=== PATIENT | female | born 1970 | race African-American/Black ===

== ENCOUNTER 2017-02-05 00:18 | Inpatient (IN) ==
[2017-02-05] MEDS ORDERED: SOLU-MEDROL IV ONE (00:45)
[2017-02-05] MEDS ORDERED: PEPCID IV ONE (00:46)
[2017-02-05] MEDS ORDERED: SODIUM CHLORIDE 0.9% INJ ONE (00:46)
[2017-02-05] MEDS ORDERED: BENADRYL IV ONE (00:46)
--- NOTE | 2017-02-05 00:53 | PROVIDER DOCUMENTATION ---
HPI-General Adult - General Chief Complaint: Edema Stated Complaint: FACIAL SWELLING Time Seen by Provider: 02/05/17 00:42 Source: patient Allergies/Adverse Reactions: Patient Allergies Allergy/AdvReac Type Severity Reaction Status Date / Time No Known Allergies Allergy Verified 02/05/17 00:30 Home Medications: Home Medication List Medication Instructions Recorded Confirmed Last Taken Type Lisinopril/Hydrochlorothiazide 1 each PO DAILY #30 tablet 01/29/16 02/05/1705/16 Rx [Lisinopril-Hctz 20-25 mg Tab] Fluoxetine HCl [Prozac] 40 mg PO DAILY 12/02/16 02/05/17 02/04/17 History Haloperidol 0.5 mg PO BID 12/02/16 02/05/17 02/04/17 History Labetalol HCl 200 mg PO BID 12/02/16 02/05/17 02/04/17 History Nifedipine E.r. [Procardia ER] 60 mg PO DAILY 12/02/16 02/05/17 02/04/17 History Potassium Chloride 20 meq PO BID #20 tab.er.prt 01/30/17 02/05/17 02/04/17 Rx Calcium Carb, Citrate/Vit D3 1 each PO DAILY 02/05/17 02/05/17 02/04/17 History [Calcium + D3 ER Tablet] - History of Present Illness -Gen Adult Nature of Presenting Problems: Pt come in with lip and tongue swelling and states that she felt as if her throat was closing up. She is managing her secretions but is visibly swollen in her upper lip and face. States that she hasn't done anything out of the ordinary or ate new foods. No new medications. Review of Systems - Adult - REVIEW OF SYSTEMS - ADULT Constitutional: reports: no symptoms reported. denies: chills, fever, fatique, night sweats, weight gain, weight loss Eyes: reports: no symptoms reported. denies: discharge, dry eyes, decreased vision, blurred vision, double vision, eye pain, redness Ears, Nose, Mouth & Throat: reports: see HPI, mouth swelling, throat swelling. denies: ear discharge, ear pain, tinnitus, sinus problem, nose pain, mouth/ dental pain, hoarseness, throat pain Cardiovascular: reports: no symptoms reported. denies: chest pain, edema, heart murmur, irregular heart rate, palpitations, poor circulation, PND, syncope Respiratory: reports: no symptoms reported. denies: chronic cough, cough, dyspnea on exertion, excessive sputum production, hemoptysis, shortness of breath, wheezing Gastrointestinal: reports: no symptoms reported. denies: abdominal pain, hematemesis, constipation, diarrhea, difficulty swallowing, nausea, poor appetite, rectal bleeding, vomiting Genitourinary: reports: no symptoms reported. denies: dysuria, discharge, flank pain, frequent UTI's, hematuria, hesitency, urinary retention, urgency Musculoskeletal: reports: no symptoms reported. denies: bone pain, back pain, frequent leg cramps, joint pain, joint swelling, muscle aches, muscle weakness, neck pain Integumentary: reports: no symptoms reported. denies: hives, itching, nail changes, rash, skin sores/ulcer, skin thickening Neurological: reports: no symptoms reported. denies: ataxia, dizziness/vertigo , headache/migraines, numbness, paresthesia, slurred speech, syncope, tremors Psychiatric: reports: no symptoms reported. denies: anxiety, alcohol/drug dependence, depression, emotional problems, panic attacks, suicidal thoughts Endocrine: reports: no symptoms reported. denies: change in skin pigment, excessive sweating, goiter, cold intolerance, heat intolerance, increased thirst , polyuria Hematologic/Lymphatic: reports: no symptoms reported. denies: blood clots, easy bruising, low blood count, lymphedema, swollen lymph nodes, transfusions Allergic/Immunologic: reports: no symptoms reported. denies: allergic reactions , allergic rhinitis, asthma, frequent infections, hay fever, hives, positive PPD , other All Other Systems: Reviewed and Negative Past History - Adult - PAST MEDICAL HISTORY-ADULT Review of Records: reports: Old Records Reviewed, Nursing Assessment Review, Medications Reviewed, Social history reviewed & non-contributory. Major Childhood Illnesses: reports: denies history Cardiovascular: reports: HTN (non compliance), hyperlipidemia Respiratory: reports: denies history Gastrointestinal: reports: denies history Obstetrical/Gynecological: reports: denies history Genitourinary: reports: denies history Musculoskeletal: reports: denies history Neurological: reports: denies history Psychiatric: reports: anxiety, depression Endocrine/Immune: reports: anemia, hypoglycemia Other Conditions: reports: denies history - PRIOR SURGERIES/PROCEDURES Surgical/Procedure History: reports: BTL, other (breast reduction) - IMMUNIZATION STATUS Childhood Immunizations: UTD Flu Vaccine: See Nurse Assessment - FAMILY HISTORY Family History: reviewed, not pertinent - SOCIAL HISTORY Smoking: cigarettes, less than 1 pack/day Provider spent 3-5 mins advising pt. on dangers of tobacco.: Discussed manners to quit use, and f/u contacts for add'l counseling. Substance Use: none/never Alcohol Use Frequency: never Living Situation: family Physical Exam-General - PHYSICAL EXAM-ADULT Initial Vital Signs Reviewed: Yes - CONSTITUTIONAL General Appearance: alert, no apparent distress - EYES Eyes: PERRL/EOMI, pink conjunctivae - HEAD, EARS, NOSE, MOUTH & THROAT HENMT: normocephalic/atraumatic, moist mucous membranes, TMs normal, angioedema , other (edema to lips and tongue) - NECK Neck: non-tender, full range of motion, supple, normal inspection - RESPIRATORY Respiratory: chest non-tender, lungs clear, normal breath sounds, no pleuratic chest pain, no respiratory distress, no accessory muscle use - CARDIOVASCULAR Cardiovascular: normal peripheral pulses, regular rate, rhythm, no edema, no gallop, no JVD, no murmur - GASTROINTESTINAL (ABDOMEN) Abdominal Exam: normal bowel sounds, non tender, soft, no organomegaly, no pulsatile mass - LYMPHATIC Lymphatic: no adenopathy - MUSCULOSKELETAL Back Exam: normal inspection, no CVA tenderness, no vertebral tenderness Extremity: normal range of motion, non-tender, normal gait, normal inspection, no pedal edema, no calf tenderness, normal capillary refill, pelvis stable - SKIN Integumentary: normal color, normal turgor, warm/dry - NEUROLOGIC Neurologic: consulting intern II-XII nml as tested, no motor/sensory deficits - PSYCHIATRIC Psych/Mental Status: normal mood/affect, normal thought content, normal thought process, oriented x 3 Progress - PLAN OF CARE/RESULTS Progress/Plan/Lab Results: Vital Signs - 8 hr 02/05/17 00:22 Temperature 98.0 F Pulse Rate 97 H Respiratory Rate 17 Blood Pressure 140/89 O2 Sat by Pulse Oximetry 100 Orders Category Date Time Status IV Insertion ORDERED Care 02/05/17 00:45 Ordered CBC WITH DIFF [HEME] Stat Lab 02/05/17 00:48 Ordered CMP [COMPREHENSIVE METABOLIC PANEL] [CHEM] Stat Lab 02/05/17 00:48 Uncollected Diphenhydramine [Benadryl] Med 02/05/17 00:46 Once 50 mg IV NOW ONE Famotidine [Pepcid] Med 02/05/17 00:46 Once 20 mg IV NOW ONE Methylprednisolone Sod Succ [Solu-Medrol] Med 02/05/17 00:45 Once 125 mg IV NOW ONE Sodium Chloride 0.9% Med 02/05/17 00:46 Once 5 - 10 ml INJ NOW ONE Result Diagrams: 02/05/17 01:13 - CONSULTS/PCP/HOSPITALIST Notification #1 *Consult/PCP/Hospitalist*: penot Time Discussed: 01:22 Consult Disposition: Will see in ED, Admit Departure - Departure Time of Disposition Decision: 01:21 DIAGNOSIS: Angio-edema Qualifiers: Encounter type: initial encounter Qualified Code(s): T78.3XXA - Angioneurotic edema, initial encounter Disposition: ADMITTED INPATIENT 09 Certified Medical Emergency: Emergent Condition: Good Additional Freetext Instructions: ED Follow Up Instructions: You have been treated by a care provider in the Emergency Department. These instructions are being provided to you so you can have an understanding of how to care for yourself upon discharge. Upon discharge from the Emergency Department, you are responsible for making arrangements for follow-up care by a physician of your choice. Take all prescribed medications as directed. Return to the Emergency Department immediately for any new or worsening symptoms. You may call the Physician Referral phone number at [phone] to obtain a list of Physicians who are taking new patients. Referrals and Follow-Ups: Isaac Fall [Primary Care Provider] -
[2017-02-05 01:19] LABS: MANUAL DIFF NEEDED? NO
[2017-02-05 01:20] LABS: BASO% 0.3 % (0.0-0.8); EOS# 0.11 X1000 (0.0-0.7); EOS% 1.6 % (0.0-10.0); HEMATOCRIT 35.3 % (37.0-47.0); HEMOGLOBIN 11.4 g/dL (12.0-16.0); LYMPH# 2.93 X1000 (1.2-3.4); LYMPH% 42.3 % (20.5-51.1); MCH 25.9 PG (27-31); MCHC 32.3 g/dL (33-37); MCV 80.2 FL (81-99); MONO# 0.61 X1000 (0.11-0.59); MONO% 8.8 % (1.7-9.3); MPV 8.7 FL (7.4-10.4); PLT 265 X1000 (130-400)
[2017-02-05] MEDS ORDERED: ZOFRAN IV PRN (01:38)
[2017-02-05] MEDS ORDERED: TYLENOL PO PRN (01:38)
[2017-02-05] MEDS ORDERED: NS 1,000 ML IV ONE (01:38)
[2017-02-05] MEDS: SOLU-MEDROL IV SCH ×3 (01:42→16:47)
[2017-02-05] MEDS: BENADRYL IV SCH ×3 (01:43→16:54)
[2017-02-05] MEDS: PEPCID IV SCH ×2 (01:43→08:49)
[2017-02-05 01:45] LABS: AGAP 11; ALBUMIN 3.9 g/dL (3.5-5.0); ALKALINE PHOSPHATASE 67 U/L (32-104); BUN 16 mg/dL (8-22); CALCIUM 9.1 mg/dL (8.8-10.2); CHLORIDE 101 mmol/L (98-107); COSMO 278; GOT 16 U/L (10-30); GPT 8 U/L (10-36); POTASSIUM 3.4 mmol/L (3.5-5.1); SODIUM 139 mmol/L (136-145); TCO2 27 mmol/L (25-35); TOTAL BILIRUBIN 0.15 mg/dL (0.20-1.00); TOTAL PROTEIN 7.4 g/dL (6.3-8.3)
[2017-02-05] MEDS ORDERED: SODIUM CHLORIDE 0.9% INJ SCH (01:45)
--- NOTE | 2017-02-05 04:21 | HISTORY AND PHYSICAL ---
CHIEF COMPLAINT: Swelling of face and lips. HISTORY OF PRESENT ILLNESS: This is a 46-year-old female with history of hypertension. Comes from home with swelling of the face starting last evening. She felt like her lip and tongue were swelling and that her throat was closing up. She is able to swallow, breathe comfortably, but she has obvious swelling of her upper lip, tongue and difficulty speaking. No new medications but she does take lisinopril. She says she has been on that for several months is what she is saying and it may be longer than that. Patient admitted for acute angioedema presumably related to YVAN inhibitor. PAST MEDICAL HISTORY: 1. Hypertension, denies diabetes. 2. Dyslipidemia. PAST SURGICAL HISTORY: She has had breast reduction and bilateral tubal ligation. SOCIAL HISTORY: She smokes less than half a pack a day. Denies alcohol. Denies recreational drug use. FAMILY HISTORY: Reviewed and noncontributory. ALLERGIES: No known drug allergies although now will be allergic to YVAN inhibitors and ARBs. MEDICATIONS: She is on calcium, Prozac 40, haloperidol 0.5 b.i.d., labetalol 200 b.i.d., lisinopril/hydrochlorothiazide which interestingly according to this she just started 8 days ago at least the prescription was given through the ER, Procardia 60 daily potassium 20 b.i.d. REVIEW OF SYSTEMS: Otherwise negative times a 10 point review of systems. PHYSICAL EXAMINATION: VITAL SIGNS: Blood pressure was 142/80, heart rate of 73, respiratory rate 14, temperature 97.8 degrees, 100% on room air. CARDIOVASCULAR: Regular rate and rhythm. PULMONARY: Bilateral breath sounds. Clear to auscultation. GASTROINTESTINAL: Soft, nontender, nondistended. Bowel sounds are positive. EXTREMITIES: No clubbing or cyanosis. LYMPHATICS: No peripheral edema. NEUROLOGICAL: Nonfocal. HEENT: She had facial edema on HEENT mostly in her upper lip, very painful, tender. She could not really move it very well. It was very difficult to analyze her oropharynx. Tongue was swollen and difficult to visualize the back of her oropharynx. LABORATORY DATA: Unremarkable. Potassium 3.4 really was the only abnormal finding. ASSESSMENT: A 46-year-old female with hypertension who has angioedema likely angiotensin- converting enzyme inhibitor related. 1. Angioedema. Obviously stop YVAN inhibitors and continue steroids, Pepcid and Benadryl, and follow clinically. We will continue to monitor very closely. 2. Hypertension. We will continue regular medications. 3. Anxiety disorder. We will continue her regular medicines and follow closely. cc: MD Isaac Ma
[2017-02-05] MEDS: TRANDATE PO SCH ×2 (08:49→20:18)
[2017-02-05] MEDS: HALDOL PO SCH ×2 (08:49→20:18)
[2017-02-05] MEDS: KLOR-CON PO SCH ×2 (08:50→20:19)
[2017-02-05] MEDS: ADALAT CC PO SCH (08:50)
[2017-02-05] MEDS: PROZAC PO SCH (08:50)
[2017-02-05] MEDS: CALTRATE 600 + D PO SCH (08:50)
[2017-02-05 10:11] LABS: IRON SATURATION 9 %; TIBC 349 ug/dL; TOTAL IRON 31 ug/dL (49-151); UNBOUND IRON 318 ug/dL (112-346)
[2017-02-05 11:18] LABS: FERRITIN 29 ng/mL (13-150)
--- NOTE | 2017-02-05 11:57 | PROGRESS NOTE ---
DATE: 02/05/2017 SUBJECTIVE: Today, Ms. Sheppard referred to be doing fine. The sensation of the throat closing up is resolved. Continues to have remarkable swelling of both lips. OBJECTIVE: Vital signs: Blood pressure is 167/92, pulse 80, respirations 18, temperature 97.3. General: Ms. Sheppard is a 46-year-old female. She was in bed and does not seem to be in any distress. Mucosa is pink and moist. Anicteric and acyanotic. Neck: Supple. Chest: Good air entry bilaterally. No crepitations. No rhonchi. Cardiovascular: Regular rate and rhythm. There is pronounced A2. Abdomen: Soft, nontender. Bowel sounds are present. Extremities: No pedal edema. [employer]: The patient is alert and oriented x4. There is no focal neurologic deficit. DIAGNOSTIC DATA: WBC is 6.92, hemoglobin 11.4, MCV is 80, platelet count 265. Chemistry is reviewed and completely unremarkable except for potassium of 3.4. ASSESSMENT: 1. Angioedema, likely due to YVAN inhibitor. 2. Hypertension, currently uncontrolled. 3. Microcytic anemia. We will do iron studies. 4. Morbid obesity with body mass index of 43.8. Weight management has been advised. PLAN: In general, Ms. Sheppard seems to be doing a whole lot better. We are going to start her on a healthy heart diet. We will cut down the prednisone to 40 IV q.8 with the intention to titrate it down. We have added famotidine for H2 blockade, but I do not think any of the current medications benefit a whole lot with YVAN induced angioedema. In terms of the blood pressure, the patient continues on nifedipine and labetalol. I have added hydralazine 25 three times per day and titrate it accordingly. We will continue with the current IV fluids. I will review the patient later on today. If she is able to tolerate her diet and stable enough, we will move her to a regular floor. cc: Davidson Flower MD
[2017-02-05] MEDS: APRESOLINE PO SCH ×2 (12:05→16:54)
[2017-02-05] MEDS: FERROUS SULFATE PO SCH ×2 (16:47→20:19)
[2017-02-05] MEDS: FOLIC ACID PO SCH (16:47)
[2017-02-05] MEDS: COLACE PO SCH (20:18)
[2017-02-05] MEDS: PEPCID PO SCH (20:24)
[2017-02-06] MEDS: SOLU-MEDROL IV SCH ×2 (00:55→08:01)
[2017-02-06] MEDS ORDERED: BLISTEX MEDICATED BERRY LIP BALM TOP PRN (00:58)
[2017-02-06] MEDS: BENADRYL IV SCH (01:00)
[2017-02-06 07:06] LABS: HEMATOCRIT 37.8 % (37.0-47.0); MCH 25.8 PG (27-31); MCHC 31.7 g/dL (33-37); MCV 81.3 FL (81-99); RBC 4.65 XMIL (4.2-5.4)
[2017-02-06 07:39] LABS: AGAP 14; BUN 10 mg/dL (8-22); CALCIUM 9.2 mg/dL (8.8-10.2); CHLORIDE 102 mmol/L (98-107); COSMO 273; POTASSIUM 3.9 mmol/L (3.5-5.1); SODIUM 137 mmol/L (136-145); TCO2 21 mmol/L (25-35)
[2017-02-06] MEDS: PEPCID PO SCH (08:00)
[2017-02-06] MEDS: PROZAC PO SCH (08:00)
[2017-02-06] MEDS: CALTRATE 600 + D PO SCH (08:00)
[2017-02-06] MEDS: FERROUS SULFATE PO SCH (08:00)
[2017-02-06] MEDS: ADALAT CC PO SCH (08:00)
[2017-02-06] MEDS: HALDOL PO SCH (08:00)
[2017-02-06] MEDS: COLACE PO SCH (08:00)
[2017-02-06] MEDS: FOLIC ACID PO SCH (08:01)
[2017-02-06] MEDS: TRANDATE PO SCH (08:01)
[2017-02-06] MEDS: KLOR-CON PO SCH (08:01)
[2017-02-06] MEDS: APRESOLINE PO SCH (08:01)
[2017-02-06] MEDS ORDERED: APRESOLINE PO SCH (08:54)
[2017-02-06 09:11] VITALS: BP 165/104
[2017-02-06] MEDS ORDERED: BENADRYL PO SCH (21:00)
--- NOTE | 2017-02-06 21:24 | DISCHARGE SUMMARY ---
ADMISSION DATE: 02/05/2017 DISCHARGE DATE: 02/06/2017 DISPOSITION: Home. FOLLOWUP: Dr. Fall. CONSULTATIONS DURING THIS ADMISSION: None. IMAGING STUDIES DONE DURING THIS ADMISSION: None. INVASIVE PROCEDURE DONE: None. ADMISSION DIAGNOSES: 1. Angioedema. 2. Hypertension. 3. Anxiety disorder. DISCHARGE DIAGNOSES: 1. Angioedema due to YVAN inhibitor (lisinopril). 2. Poorly controlled hypertension 3. Iron deficiency anemia. 4. Folate deficiency 5. Morbid obesity. 6. Anxiety disorder. DISCHARGE MEDICATIONS: 1. Fluoxetine 40 mg daily. 2. Haldol 0.5 b.i.d. 3. Labetalol 200 mg b.i.d. 4. Nifedipine 60 mg daily. 5. Chlorthalidone 12.5 p.o. daily. 6. Diphenhydramine 25 mg b.i.d. 7. Famotidine 20 mg q.12 hours. 8. Folic acid 1 mg p.o. daily. 9. Hydralazine 50 mg 3 times per day. 10. Prednisone 20 mg daily. 11. Iron sulfate 225 p.o. b.i.d. PRESENTING COMPLAINT: Was swelling of face and lips. HISTORY OF PRESENTING COMPLAINT: Ms. Sheppard is a 46-year-old female with a history of longstanding hypertension for over 15 years poorly controlled who presented to the emergency department because of 1-day history of lip swelling. Upon presentation patient was evaluated and was found to be on lisinopril for some time, was thought to be in angioedema due to YVAN inhibitors, was admitted to the ICU for further medical care. HOSPITAL COURSE: Patient did pretty well during the hospital stay, responded very well to the regular medications for histamine type of allergy reaction which she responded miraculously very well. The lips swelling and facial swelling considerably resolved over a day. Blood pressure was control with other medication except YVAN inhibitor. Patient has been warned never again to use YVAN inhibitor or even ARBs. She is going to be discharged home in a very stable condition today. At the time of discharge her vitals blood pressure is 136/80, pulse is 90, respiration is 18. The patient's physical exam is unremarkable. Specifically the facial swelling and lip swelling is resolved and patient has been able to tolerate meals without any difficulty or swallow. She is going to follow up with Dr. Fall. During the hospital stay patient was also found to have iron deficiency anemia with a ferritin level of 29 and folate deficient with a folate of 7.6. She has been given replacement for those pathologies. Time spent for discharge is 36 minutes. cc: Davidson Flower MD MTDD
[2017-02-07] MEDS ORDERED: PREDNISONE PO SCH (09:00)
[2017-02-07] MEDS ORDERED: HYGROTON PO SCH (09:00)
== END 2017-02-06 11:00 | disposition home or self-care (01) ==
LOC: ED 00:18 → ICU 02:12 → SUATTDRO 04:37
PROVIDERS: ATTEND Internal Medicine